=== PATIENT | female | born 1995 | race Hispanic/Latino ===

== ENCOUNTER 2017-03-05 19:03 | Emergency (ER) | payer BC, OTHER ==
[2017-03-05] MEDS ORDERED: Ibuprofen 800 MG TAB ONE (20:22)
--- NOTE | 2017-03-05 20:34 | RAD ---
FRONTAL AND LATERAL IMAGING CHEST 03/05/17 COMPARISON: None. HISTORY: Headache. FINDINGS: No pneumothorax, pleural fluid, focal consolidation, or alveolar edema. The heart and mediastinal con tours are grossly unremarkable. There is lower thoracic spine dextroscoliosis. IMPRESSION: No acute findings. POS: [facility]
--- NOTE | 2017-03-08 12:59 | EKG ---
Test Reason : CP Blood Pressure : / mmHG Vent. Rate : 075 BPM Atrial Rate : 075 BPM P-R Int : 130 ms QRS Dur : 080 ms QT Int : 380 ms P-R-T Axes : 048 065 044 degrees QTc Int : 424 ms Normal sinus rhythm with sinus arrhythmia Normal ECG Confirmed by ANDREA NO ([id number]), commissioning editor ANALI HERNÁNDEZ ([id number] on 03/08/2017 12:58:42 PM Referred By: Confirmed By:ANDREA NO
== END 2017-03-05 21:20 | disposition home or self-care (01) ==
LOC: ERS 19:03
DX: J20.9 Acute bronchitis, unspecified (principal); F32.9 Major depressive disorder, single episode, unspecified
CPT/HCPCS: 71020; 93005

== ENCOUNTER 2017-04-30 14:47 | Emergency (ER) | payer OTHER ==
[2017-04-30 16:00] LABS: Bilirubin Negative (Negative); Blood, Urine Moderate (Negative); Clarity CLOUDY (Clear); Glucose, Urine (Dipstick) Negative (Negative); Leukocyte Small (Negative); Nitrite Negative (Negative); Protein, Urine (Dipstick) Negative (Neg-Trace); Specific Gravity, Urine 1.021 (1.002-1.036); Urobilinogen 0.2 mg/dL (0.2-1.0)
[2017-04-30 16:02] LABS: Bacteria/HPF Rare-Few HPF (None Seen); Hyaline Casts/LPF 4-6 HYALINE CAST LPF (0-3 Hyaline); Pathc Cast-AUWi Flag 1.08 (0-2.49); Squamous Epithelial 0-3 HPF (0-3)
[2017-05-03 21:14] LABS: Chlamydia by PCR Not Detected (NotDetected); GC by PCR Not Detected (NotDetected)
== END 2017-04-30 16:50 | disposition home or self-care (01) ==
LOC: ERS 14:47
DX: O20.0 Threatened abortion (principal); O41.02X0 Oligohydramnios, second trimester, not applicable or unspecified; O99.342 Other mental disorders complicating pregnancy, second trimester; F32.9 Major depressive disorder, single episode, unspecified; Z3A.17 17 weeks gestation of pregnancy
CPT/HCPCS: 36415; 81003; 81015; 84702; 86900; 86901; 87480; 87491; 87510; 87591; 87660

== ENCOUNTER 2017-05-04 21:31 | Inpatient (IN) | payer OTHER ==
[2017-05-04] MEDS ORDERED: Carboprost 250 MCG/ML AMP IM PRN (22:19)
[2017-05-04] MEDS ORDERED: LR / Pitocin 40 units/1000 ml 1,000 ML IV PRN (22:19)
[2017-05-04] MEDS ORDERED: Ibuprofen 800 MG TAB PO PRN (22:19)
[2017-05-04] MEDS ORDERED: Methylergonovine 0.2 MG/ML VIAL IM PRN (22:19)
[2017-05-04] MEDS ORDERED: HYDROcodone/Acetaminophen 5/325 mg Tablet PO PRN ×2 (22:19)
[2017-05-04] MEDS ORDERED: Zolpidem Tartrate 5 MG TAB PO PRN (22:25)
[2017-05-04] MEDS ORDERED: Promethazine HCl 25 MG/ML VIAL IM PRN (22:25)
[2017-05-04] MEDS ORDERED: Acetaminophen 500 MG TAB PO PRN (22:25)
[2017-05-04] MEDS ORDERED: Ondansetron HCl/PF 4 MG/2 ML Vial IVP PRN (22:25)
--- NOTE | 2017-05-04 22:37 | PDOC.LDHP ---
Labor and Delivery H&P Chief complaint: contractions HPI: Patient started having cramps at around 6pm today. She feels like the baby is coming out. Current gestational age (weeks): 18 Dating criteria: last menstrual period Grav: 1 Current complications: other (PPROM) Abnormal US findings: Yes (PPROM at 16w6 days) Past Medical History: +CT at NOB visit. Current medications: pre-katina vitamins, other (zoloft (self d/c this week)) - Physical Exam Vital signs reviewed and normal: yes Abnormal vital signs: tachycardia immediatley following delivery. General: NAD Heart: RRR Lungs: nonlabored breathing Abdomen: other (obese) Extremeties: no edema - Assessment PPROM at 16w6 days, currently 18weeks gestation Delivered 17w6d demise, . - Plan Plan: admit to L&D, other (cytotec 400mcgs [place] Q3hrs for placental delivery, Notify Tushar Stanley and Dr. Kemp for a PPH)
[2017-05-04 22:43] LABS: #Eosinphils 0.1 thou/uL (0.0-0.7); #Lymphocytes 1.4 thou/uL (1.20-3.40); #Monocytes 0.6 thou/uL (0.11-0.59); #Neutrophils 13.8 thou/uL (1.40-6.50); %Eosinophils 0.5 % (0.0-10.0); %Lymphocytes 9.1 % (28.0-48.0); %Monocytes 3.8 % (0.0-4.0); %Neutrophils 86.6 % (31.0-61.0); Hemoglobin 13.1 g/dL (12.0-16.0); Mean Corpuscular HGB CONC 35.1 g/dL (32.0-36.0); Mean Corpuscular Hemoglobin 33.1 pg (25.0-35.0); Mean Corpuscular Volume 94.4 fl (77.0-87.0); Mean Platelet Volume 7.6 fL (7.4-10.4); Platelet Count 170 thou/uL (130-400); RBC Distribution Width 12.3 % (11.5-14.5); Red Blood Cell (RBC) Count 3.96 mill/uL (4.00-5.20); White Blood Cell (WBC) Count 15.9 thou/uL (4.8-10.8)
[2017-05-04] MEDS: Misoprostol 200 MCG TAB PR SCH (23:42)
[2017-05-05 00:05] VITALS: BMI 38.3
[2017-05-05] MEDS ORDERED: FLU VACC QS2017-18 36 mo. & older 0.5 ML SYRINGE IM ONE (09:00)
[2017-05-05] MEDS ORDERED: Azithromycin 1,000 MG, Admixture Fee 1 EACH in Sodium Chloride 0.9% 500 ML IVPB SCH (09:00)
[2017-05-05] MEDS: Misoprostol 200 MCG TAB PR SCH (10:04)
[2017-05-05 11:30] VITALS: BP 99/53; TEMP 98.6
--- NOTE | 2017-05-05 12:00 | DIS ---
DIAGNOSES: 1. demise due to miscarriage. 2. Vaginal delivery. 3. 17 weeks' gestation. 4. premature rupture of membranes. 5. High risk teen . HOSPITAL COURSE: The patient was admitted to Labor and Delivery on 05/04/2017 with known pre mature rupture of membranes one week prior at 16 weeks and 6 days. Patient reported pressure in the vaginal canal and contractions that had started at 6:00 p.m. that day. Upon exam, feet were no fatou in the vaginal canal. Therefore, I performed delivery at the bedside with RN present. Placenta was not delivered spontaneously.
--- NOTE | 2017-05-05 12:24 | DIS ---
ATTENDING PHYSICIAN: Yuli Stanley certified nurse medical billing and coding specialist. CONSULTING PHYSICIAN: Dr. Kemp CONDITION ON DISCHARGE: 1. demise due to miscarriage. 2. Spontaneous vaginal delivery. 3. 17 weeks' gestation of . 4. premature rupture of membranes. 5. High risk teen . PROCEDURE: Spontaneous vaginal delivery. HISTORY OF PRESENT ILLNESS: In brief, the patient was admitted to hospital yesterday following a kn own premature rupture of membranes 1 week prior. The patient was afebrile on admission, had been luarel since 6:00 p.m. earlier that evening and noted that the fetus was in the vaginal can al. LABORATORY: White count was 15.9 on 05/04/2017 at 2245, hemoglobin is 13.1, hematocrit was 37.4. Ne utrophils were 86.6. HOSPITAL COURSE: demise related to miscarriage, high risk teen , premature ru pture of membranes. DISCHARGE MEDICATIONS: Augmentin 875/125 one tablet p.o. b.i.d. for 7 days. DISCHARGE INSTRUCTIONS: Resume regular diet and activity. Notify Yuli Stanley certified nurse bentley lara at the clinic with any fevers or foul smelling discharge or other signs of infection. Followup appointment in 6 weeks.
--- NOTE | 2017-05-06 13:48 | PDOC.OPDEL ---
OB Operative/Delivery Note Delivery Dr/Surgeon: Tushar Stanley CNM Pre-Delivery Diagnosis: other (High risk teen , Premature rupture of membranes, 17 weeks gestation, obesity,) Procedure/Post Delivery Dx: other (second trimester misscarrige) Anesthesia: none - Findings A Sex: female Weight: 0 oz (The fetus was noted to have electorcardiac motion at delivery, without spontaneous movement, absent respiratory effort. No attempt a recussication was made as this was a non-viable fetus delivered in [facility] 2nd trimester of prgnancy. ) - Additional Findings/Plan Placenta delivered: spontaneous (After cytotec rectal cytotec) Repaired Obstetrical Laceration: none Compilations/Other Findings: No attempt at resuscitation was made despite minimal electrocardio motion Post delivery plan: routine recovery (1 gm azitromycin IVPB for prophylasis and will discharge on antibiotics for one week.)
== END 2017-05-05 14:40 | disposition home or self-care (01) | DRG 775 ==
LOC: L&D/OP 21:31 → L&D 05-05 02:51 → 3SE 05-05 06:49
PROVIDERS: ADMIT Obstetrics & Gynecology; ATTEND Obstetrics & Gynecology
PROC: 10E0XZZ Delivery of Products of Conception, External Approach (ICD-10-PCS; principal; 2017-05-04)
DX: O42.112 Preterm premature rupture of membranes, onset of labor more than 24 hours following rupture, second trimester (principal); Z37.1 Single stillbirth; O02.1 Missed abortion; Z3A.17 17 weeks gestation of pregnancy
CPT/HCPCS: 85025; 86850; 86900; 86901; 88300; 88305; 99285; J0456; J0595; J7050

== ENCOUNTER 2019-02-02 04:00 | Emergency (ER) | payer BC, OTHER ==
[2019-02-02 05:07] LABS: Bilirubin Negative (Negative); Blood, Urine Negative (Negative); Clarity Clear (Clear); Glucose, Urine (Dipstick) Normal (Negative); Leukocyte Negative Leu/uL (Negative); Nitrite Negative (Negative); Protein, Urine (Dipstick) Negative (Neg-Trace); Urobilinogen Normal mg/dL (Less than 2)
== END 2019-02-02 06:05 | disposition home or self-care (01) ==
LOC: ERS 04:00
DX: O20.0 Threatened abortion (principal); Z3A.01 Less than 8 weeks gestation of pregnancy
CPT/HCPCS: 36415; 81003; 84702; 86900; 86901

== ENCOUNTER 2019-03-09 06:16 | Emergency (ER) | payer OTHER, SELFPAY ==
[2019-03-09 06:49] LABS: Blood, Urine Large (Negative); Glucose, Urine (Dipstick) Negative (Negative); Nitrite Negative (Negative); Protein, Urine (Dipstick) > or equal to 300 mg/dL (Neg-Trace)
[2019-03-09 06:58] LABS: Clarity Cloudy (Clear)
[2019-03-09 07:03] LABS: Bilirubin Small (Negative); Leukocyte Small (Negative)
[2019-03-09 07:04] LABS: RBC/HPF Greater than 50 HPF (0-3)
[2019-03-09 07:05] LABS: Bacteria/HPF Rare-Few HPF (None Seen); Squamous Epithelial 0-3 HPF (0-3)
== END 2019-03-09 07:45 | disposition home or self-care (01) ==
LOC: ERS 06:16
DX: O20.0 Threatened abortion (principal); O99.341 Other mental disorders complicating pregnancy, first trimester; F32.9 Major depressive disorder, single episode, unspecified; Z3A.11 11 weeks gestation of pregnancy
CPT/HCPCS: 81003; 81015; 87086; 99284

== ENCOUNTER 2019-05-02 10:28 | Day surgery (SDC) | payer OTHER ==
[2019-05-01 09:22] VITALS: BMI 39.1
--- NOTE | 2019-05-01 11:01 | HP ---
She is scheduled for Angulo cerclage procedure on May 02. HISTORY OF PRESENT ILLNESS: Ms. Hanna is a 23-year-old Latin-British female, G2, P0, A1, who had an idiopathic 16 week PPROM with loss with her first in April 2017. Only suspected history during that particular , she did have some recurrent Chlamydia infection that were treated. She has no history of prior surgery on her cervix or D and C. Due to the history of her PPROM and loss at 16 weeks, she was referred to Maternal Medicine by Dr. Yuli Stanley, the certified nurse analytical scientist, who is caring for the patient. Dr. Rivers of Maternal Medicine from [place] recommended a prophylactic cerclage due to the findings of an asymptomatic shortened cervix by most recent ultrasound on 04/24/2019. The cervical length measured 2.1 cm. No cervical funneling noted. General anatomic survey; the fetus was normal and she had noted a low-lying posterior placenta, which is 1.3 cm from the cervical os. Currently, the patient denies any vaginal bleeding, excessive fluid, or vaginal discharge or cramping. PAST MEDICAL HISTORY: Otherwise, unremarkable. PAST SURGICAL HISTORY: Unremarkable. OB LABS: Her blood type is O positive. Antibody screen negative. RPR was nonreactive. Urine culture was negative. HIV was negative. Hepatitis B surface antigen was negative. Chlamydia of the cervix and gonorrhea screening were negative along with a negative vaginitis panel. SOCIAL HISTORY: She is a nonsmoker. No alcohol use. FAMILY HISTORY: Noncontributory. Her EDC dating by first trimester ultrasound, LMP is September 23, 2019. PHYSICAL EXAMINATION: VITAL SIGNS: The patient's blood pressure is 112/60. Weight 247 pounds with BMI 38. heart tones are in the 150s. HEENT: Within normal limits. CHEST: Clear to auscultation. HEART: Regular rate and rhythm. S1 and S2, heart sounds. No murmurs, rubs, or gallops. ABDOMEN: Soft, nontender, and nondistended with no palpable masses. PELVIC: Uterus was 18 to 20 week size, nontender. Cervical exam; no vulvar and vaginal lesions were noted. Internal cervical os appeared closed. It was somewhat shortened at 2 cm on recent ultrasound and confirmed. EXTREMITIES: Showed full range of motion and were nontender. ASSESSMENT AND PLAN: This is a 23-year-old Latin-British female, G2, P0, with prior 16 to 17 week premature rupture of the membranes with delivery, idiopathic cause, now with a symptomatic shortened cervix on recent ultrasound measuring 2.1 cm. This is consistent with cervical insufficiency. [facility] recommendations, a cerclage should be placed. Risks and benefits of the procedure have been discussed with the patient including bleeding, rupture of membranes, infection. She is scheduled for the procedure on 05/02/2019. Job ID: [id number]
[~2019-05-02 10:28] MED LIST: ePHEDrine/0.9% NaCl/PF SYRINGE 50 mg/10 ml ONE
[2019-05-02] MEDS ORDERED: Fentanyl 100 MCG/2 ML VIAL ONE (11:07)
[2019-05-02 11:18] LABS: #Basophils 0.1 thou/uL (0.0-0.2); #Eosinphils 0.1 thou/uL (0.0-0.7); #Lymphocytes 1.5 thou/uL (1.20-3.40); #Monocytes 0.3 thou/uL (0.11-0.59); #Neutrophils 5.2 thou/uL (1.40-6.50); %Eosinophils 1.2 % (0.0-10.0); %Lymphocytes 20.6 % (21.0-51.0); %Monocytes 4.5 % (0.0-10.0); %Neutrophils 72.8 % (42.0-75.0); Hemoglobin 12.5 g/dL (12.0-16.0); Mean Corpuscular HGB CONC 33.9 g/dL (32.0-36.0); Mean Corpuscular Hemoglobin 32.6 pg (27.0-31.0); Mean Corpuscular Volume 96.2 fL (78.0-98.0); Mean Platelet Volume 7.6 fL (7.4-10.4); Platelet Count 133 thou/uL (130-400); RBC Distribution Width 11.7 % (11.5-14.5); Red Blood Cell (RBC) Count 3.84 mill/uL (4.20-5.40); White Blood Cell (WBC) Count 7.1 thou/uL (4.8-10.8)
[2019-05-02] MEDS ORDERED: Lidocaine 1% w/Epinephrine 1:100K 20 ML VIAL ONE (11:43)
[2019-05-02] MEDS ORDERED: Lidocaine 1% (PF) 30 ML VIAL ONE (11:43)
--- NOTE | 2019-05-02 15:09 | OP ---
DATE OF PROCEDURE: 05/02/2019 PREOPERATIVE DIAGNOSES: 1. A 23-year-old female, G2, P0, A1, with prior 16-to 17-week loss with premature rupture of the membranes. 2. Cervical insufficiency with noted short cervix on recent ultrasound at 2.1 cm. POSTOPERATIVE DIAGNOSES: 1. A 23-year-old female, G2, P0, A1, with prior 16-to 17-week loss with premature rupture of the membranes. 2. Cervical insufficiency with noted short cervix on recent ultrasound at 2.1 cm. PROCEDURE PERFORMED: Angulo cerclage with Mersilene tape. ANESTHESIA: Spinal block. ESTIMATED BLOOD LOSS: 25 mL. COMPLICATIONS: None. ANTIBIOTICS: 2 g Ancef on-call to the OR. FINDINGS: 1. Preserved cervical length noted of greater than 2 cm. 2. Internal os appeared closed on visual inspection. 3. Clear urine noted in Small catheter postprocedure and no evidence of spontaneous rupture of membranes during procedure. Cervix was hemostatic postprocedure. DISPOSITION: To recovery room and plan for discharge home with followup on 05/03 with Maternal Medicine as scheduled. DESCRIPTION OF PROCEDURE: The patient previously received informed consent in regard to surgery. She was taken back to the operating room, where she had a spinal block placed. Then, she was placed in dorsal lithotomy position, prepped and draped in usual sterile fashion. Small catheter was placed. The patient was placed in modified Trendelenburg position. A side-arm speculum placed in the vagina. The cervix was inspected. Two ring forceps were placed at 12 o'clock and 6 o'clock position approximately 2 cm in length with the upper margin. At this time, a Mersilene umbilical tape was placed after the tape had been lubricated with K-Y Jelly. The tape was initially brought out from 12 o'clock to 10 o'clock position, then it was placed with a pursestring stitch from 10 o'clock to 6 o'clock and then 4 o'clock to 2 o'clock and then back to the 12 o'clock position. Approximately 2 cm of length was noted to be distal to the Mersilene tape positioning. Intermittent checking of the urine during the procedure showed the urine to remain clear. The tape was then tied at the 12 o'clock position with 6 knots. Hemostasis of the cervix was confirmed. There was no evidence of any ruptured membranes and it was noted that bladder urine remained clear. The speculum was removed. The patient was taken off the OR table and transferred to recovery. Plan for discharge home later this afternoon and will have a followup on 05/03 with [facility] and then 1 week with Yuli Stanley, certified nurse honing machine try out setter. Job ID: [id number]
== END 2019-05-02 17:05 | disposition home or self-care (01) ==
LOC: SDC 10:28
PROVIDERS: ATTEND Obstetrics & Gynecology
PROC: 0UVC7ZZ Restriction of Cervix, Via Natural or Artificial Opening (ICD-10-PCS; principal; 2019-05-02)
DX: O34.32 Maternal care for cervical incompetence, second trimester (principal); O99.212 Obesity complicating pregnancy, second trimester; E66.9 Obesity, unspecified; O09.292 Supervision of pregnancy with other poor reproductive or obstetric history, second trimester; Z3A.15 15 weeks gestation of pregnancy; Z79.82 Long term (current) use of aspirin
CPT/HCPCS: 36415; 85025; J0690; J2001; J3010

== ENCOUNTER 2019-09-15 20:21 | Day surgery (SDC) | payer OTHER ==
[2019-09-15 20:57] VITALS: BMI 44.3
[2019-09-16] MEDS ORDERED: hydrALAZINE 20 MG/ML VIAL SLOW IVP PRN (07:54)
--- NOTE | 2019-09-16 08:18 | PRG ---
DATE OF SERVICE: 09/15/2019 PRIMARY OB: 1. Yuli Stanley CNM. 2. Aide Calixto MD. CHIEF COMPLAINT: Contractions. HISTORY OF PRESENT ILLNESS: The patient is a 24-year-old G2, P0 female with an intrauterine at 39 weeks' gestation, who presented to Labor and Delivery with uterine contractions. These contractions have been coming and going in the last several days, but just became more persistent. This evening, the patient reports a history of cervical incompetence, had a cerclage placed with this , which was removed about 2 weeks ago. She also reports last week that she was about 4.5 cm dilated and she denies vaginal bleeding or leakage of fluid. She denies fever, headache, cough, chest pain, shortness of breath, nausea, vomiting, diarrhea, constipation, any new rashes, hip problems, knee problems, muscle weakness, urinary urgency or frequency. PAST MEDICAL HISTORY: Negative. PAST SURGICAL HISTORY: Cervical cerclage. ALLERGIES: NO KNOWN DRUG ALLERGIES. MEDICATIONS: vitamins. OB LABS: Blood type is O positive. Antibody screen is negative. She is rubella immune. RPR is nonreactive. HIV is nonreactive. Hepatitis B surface antigen is nonreactive. REVIEW OF SYSTEMS: Per HPI. PHYSICAL EXAMINATION: VITAL SIGNS: Blood pressure is 120/69, heart rate of 95, respiratory rate 18, and temperature 98.2. GENERAL: She appears to be in no acute distress. She is alert and oriented, cooperative and pleasant to interact with. The patient does not appear to have any discomfort with these contractions. Repeat exam 2 hours later is unchanged. HEENT: Head is normocephalic and atraumatic. LUNGS: Clear to auscultation bilaterally. HEART: Has a regular rate and rhythm. ABDOMEN: Gravid and soft, nontender. EXTREMITIES: Nontender, nonedematous. PELVIS: Cervical exam per nursing staff is 4.5, 75, -3 station. heart tracing shows the fetus with a baseline in the 120s with moderate long-term variability, positive 15 x 15 accelerations, no decelerations. Contractions show some irregularity, but no real regular pattern. ASSESSMENT AND PLAN: The patient is a 24-year-old G2, P0 female with an intrauterine at 39 weeks, presenting for contractions. She has no evidence of labor at this time. She does have a history of cervical incompetence and has been dilated to about 4.5 cm for couple of weeks now with no evidence of change in the last couple of hours. The patient lives near the hospital and has been given term labor precautions and being discharged home. The patient is being discharged home. Job ID: [id number]
== END 2019-09-15 23:20 | disposition home or self-care (01) ==
LOC: L&D/OP 20:21
PROVIDERS: ATTEND Advanced Practice Midwife
DX: O47.1 False labor at or after 37 completed weeks of gestation (principal); Z3A.39 39 weeks gestation of pregnancy

== ENCOUNTER 2019-09-17 03:59 | Inpatient (IN) | payer OTHER ==
[2019-09-17 04:32] VITALS: BMI 38.3
[2019-09-17] MEDS ORDERED: Ondansetron PF 4 MG/2 ML Vial IVP PRN ×3 (05:15→13:52)
[2019-09-17] MEDS ORDERED: Lidocaine 1% (PF) 30 ML VIAL SC PRN (05:15)
[2019-09-17] MEDS ORDERED: NS / Oxytocin 40 units/1000ml 1,000 ML IV PRN (05:15)
[2019-09-17] MEDS ORDERED: HYDROcodone/Acetaminophen 5/325 mg Tablet PO PRN ×4 (05:15→13:52)
[2019-09-17] MEDS ORDERED: Promethazine HCl 25 MG/ML VIAL IM PRN ×2 (05:15→08:39)
[2019-09-17] MEDS ORDERED: Butorphanol Tartrate 1 MG/ML VIAL SLOW IVP PRN (05:15)
[2019-09-17] MEDS ORDERED: Ibuprofen 800 MG TAB PO PRN (05:15)
[2019-09-17] MEDS ORDERED: hydrALAZINE 20 MG/ML VIAL SLOW IVP PRN ×2 (05:15→13:52)
[2019-09-17] MEDS: Lactated Ringer's 1,000 ML IV SCH ×2 (05:30→19:03)
[2019-09-17 05:37] LABS: Hemoglobin 12.9 g/dL (12.0-16.0); Mean Corpuscular HGB CONC 34.8 g/dL (32.0-36.0); Mean Corpuscular Hemoglobin 34.4 pg (27.0-31.0); Mean Corpuscular Volume 98.8 fL (78.0-98.0); Mean Platelet Volume 8.4 fL (7.4-10.4); Platelet Count 174 thou/uL (130-400); RBC Distribution Width 11.7 % (11.5-14.5); Red Blood Cell (RBC) Count 3.74 mill/uL (4.20-5.40); White Blood Cell (WBC) Count 12.3 thou/uL (4.8-10.8)
[2019-09-17 06:11] LABS: Syphilis Antibody Nonreactive (Nonreactive); Syphilis Antibody Index 0.04 S/CO (<1.00 Non-Reactive)
[2019-09-17 06:12] LABS: HBSAg Index 0.17 S/CO (0-0.99); HIV (1/2) Antibody/Antigen Non-Reactive (NonReactive); HIV 1/2 INDEX 0.09 S/CO (<1.00); Hep B Surf Ag Non-Reactive S/CO (NonReactive)
[2019-09-17] MEDS ORDERED: Fentanyl 4 mcg/Bup 0.1% Cadd 100 ML ONE (06:54)
[2019-09-17] MEDS ORDERED: diphenhydrAMINE 50 MG/ML VIAL IVP PRN (08:39)
[2019-09-17] MEDS ORDERED: EPHEDRINE 25 MG/5 ML SYRINGE SLOW IVP PRN (08:39)
[2019-09-17] MEDS ORDERED: Lactated Ringer's 500 ML IV PRN (08:39)
[2019-09-17] MEDS ORDERED: Naloxone HCl 0.4 mg/ml Vial IVP PRN ×2 (08:39)
[2019-09-17] MEDS ORDERED: Acetaminophen 325 MG TAB PO PRN (08:39)
[2019-09-17] MEDS ORDERED: Communication Order-Pharmacy FS SCH (08:45)
[2019-09-17] MEDS ORDERED: Fentanyl 4 mcg/Bupivacaine 0.1% Cassette 100 ML EPIDURAL SCH (08:45)
[2019-09-17] MEDS ORDERED: Lidocaine 2% MPF 10 ML AMP (For Epidural Use) ONE (09:05)
--- NOTE | 2019-09-17 12:59 | PDOC.LDHP ---
Labor and Delivery H&P Chief complaint: contractions HPI: Patient arrived to hospital after contractions through the night. Affirms positive movement. Current gestational age (weeks): 39 Due date: 09/23/19 Dating criteria: last menstrual period Grav: 2 Para: 1 OB History Details: 2018 - 18 weeks gestation following PPROM a 16 weeks 2020 current gestation Current complications: other (shortened cervical length. Cerclage placed at [address] Calixto. Removed at 36 weeks.) Abnormal US findings: No Current medications: pre-katina vitamins Previous surgical history: other (Cerclage) Allergies/Adverse Reactions: Allergies Allergy/AdvReac Type Severity Reaction Status Date / Time No Known Allergies Allergy Verified 09/17/19 04:34 Social history: none - Physical Exam Vital signs reviewed and normal: yes General: NAD Lungs: nonlabored breathing Abdomen: gravid FHT: category 2, variable decelerations - Vaginal Exam cm dilated: 10 Effacement: 100% Station: 2+ - OB Labs Blood type: O RH: positive Antibody Screen: negative HIV: negative RPR: negative HEPSAg: negative 1 hour GCT: negative GBS: negative Urine drug screen: negative Rubella: immune - Assessment L&D Assessment: term patient in labor - Plan Plan: admit to L&D, anesthesia consult for pain management
--- NOTE | 2019-09-17 13:07 | PDOC.OPDEL ---
OB Operative/Delivery Note Delivery Dr/Surgeon: Jaden Pre-Delivery Diagnosis: active labor Procedure/Post Delivery Dx: spontaneous vaginal delivery Weeks gestation: 39 Anesthesia: epidural - Findings A Sex: male Weight: 6 lb 15 oz - 1 min: 8 - 5 min: 9 - Additional Findings/Plan Placenta delivered: spontaneous Repaired Obstetrical Laceration: vaginal (1st. degree. repaired 2.0 Vicryl) Estimated blood loss: 175mL QBL Compilations/Other Findings: Deep variable to 50-60 - delivery was imminent. Nursery awaiting at bedside prior to delivery. Post delivery plan: routine recovery
[2019-09-17] MEDS ORDERED: Lanolin Ointment 7 GM TUBE TOP PRN (13:52)
[2019-09-17] MEDS ORDERED: Misoprostol 200 MCG TAB VAG PRN (13:52)
[2019-09-17] MEDS ORDERED: Bisacodyl 10 MG SUPP PR PRN (13:52)
[2019-09-17] MEDS ORDERED: NS / Oxytocin 40 units/1000ml 1,000 ML IV SCH (13:52)
[2019-09-17] MEDS ORDERED: Milk Of Magnesia 30 ML UDCUP PO PRN (13:52)
[2019-09-17] MEDS ORDERED: Benzocaine-Menthol 82.5 ML CAN TOP PRN (13:52)
[2019-09-17] MEDS: Ibuprofen 800 MG TAB PO SCH ×2 (19:00→22:33)
[2019-09-17] MEDS: Ferrous Sulfate 325 MG TAB PO SCH (19:00)
[2019-09-17] MEDS: Docusate Calcium (SURFAK) 240 MG CAP PO SCH (22:33)
[2019-09-18] MEDS: Ibuprofen 800 MG TAB PO SCH ×3 (06:26→21:51)
[2019-09-18] MEDS: Ferrous Sulfate 325 MG TAB PO SCH ×2 (09:38→16:14)
[2019-09-18] MEDS: Prenatal Vitamin 1 TAB PO SCH (09:39)
[2019-09-18] MEDS: Docusate Calcium (SURFAK) 240 MG CAP PO SCH ×2 (09:39→21:51)
[2019-09-18] MEDS ORDERED: Adacel (T-DAP) 0.5 ML SYRINGE IM ONE (13:52)
[2019-09-19] MEDS: Ibuprofen 800 MG TAB PO SCH (05:13)
[2019-09-19 07:38] VITALS: BP 101/51; TEMP 98.2
[2019-09-19] MEDS: Ferrous Sulfate 325 MG TAB PO SCH (07:45)
[2019-09-19] MEDS: Prenatal Vitamin 1 TAB PO SCH (08:08)
[2019-09-19] MEDS: Docusate Calcium (SURFAK) 240 MG CAP PO SCH (08:08)
--- NOTE | 2019-09-19 12:15 | PDOC.PP ---
Post Progress Note Post Day #: 1 Subjective: pt is doing well. BAby is in Nursery but he is coming to room for feeds PO intake tolerated: yes Flatus: yes Ambulation: yes Vital Signs (12 hours) Temp Pulse Resp BP Pulse Ox 09/19/19 07:37 98.2 F 78 20 101/51 L 97 Weight Weight 245 lb - Physical Examination General: NAD Respiratory: non-labored breathing Abdominal: no distention Extremities: negative homans (B) Skin: no rash Neurological: no gross focal deficits Psychiatric: A&Ox3, normal affect Result Diagrams: 09/17/19 05:23 Additional Labs: Post Labs Blood Type O POSITIVE 09/17/19 05:23 Hep Bs Antigen Non-Reactive S/CO (NonReactive) 09/17/19 05:23 (1) (spontaneous vaginal delivery) Code(s): O80 - ENCOUNTER FOR FULL-TERM UNCOMPLICATED DELIVERY Status: Acute - Assessment/Plan A: g2 now p1 s/p with NML exam PPD 1 P routine pp care
== END 2019-09-19 13:40 | disposition home or self-care (01) | DRG 807 ==
LOC: L&D/OP 03:59 → L&D 05:37 → 3SW 14:31
PROVIDERS: ADMIT Student in an Organized Health Care Education/Training Program; ATTEND Student in an Organized Health Care Education/Training Program
PROC: 10E0XZZ Delivery of Products of Conception, External Approach (ICD-10-PCS; principal; 2019-09-17)
PROC: 0HQ9XZZ Repair Perineum Skin, External Approach (ICD-10-PCS; 2019-09-17)
DX: O70.0 First degree perineal laceration during delivery (principal); Z37.0 Single live birth; Z3A.39 39 weeks gestation of pregnancy
CPT/HCPCS: 36415; 51702; 85027; 86780; 86850; 86900; 86901; 87340; 87389; 99285; J0595; J2001